=== PATIENT | male | born 1985 | race Asian ===

== ENCOUNTER 2016-07-11 11:52 | Emergency (ER) | payer MEDICAID, OTHER ==
[~2016-07-11] VITALS: Ht 175.3 cm; Wt 94.8 kg
[~2016-07-11 11:52] MED LIST: IBUPROFEN600 MG ORAL
[2016-07-11] MEDS ORDERED: Ipratropium 0.02% Inh Soln 2.5ml UD HHN ONE (12:15)
[2016-07-11] MEDS ORDERED: Albuterol ud Inhalation HHN ONE (12:15)
--- NOTE | 2016-07-11 12:29 | Emergency Room Report ---
History of Present Illness General Chief Complaint: Asthma Source: Patient Present Illness HPI The pt is a 31 yo M presenting for asthma exacerbation. The pt states he has been experiencing wheezing, cough, and chest congestion for 2 days. The pt states this feels similar to past asthma exacerbations. The pt has not used albuterol as he has run out. The patient denies any other symptoms including F, chills, SOB, CP, diaphoresis, hemoptysis. The patient denies sick contacts recent travel. Allergies: Coded Allergies: No Known Allergies (Unverified , 12/01/14) Patient History Past Medical History: see triage record Pertinent Family History: none Reviewed Nursing Documentation: PMH: Agreed, PSxH: Agreed Nursing Documentation-PMH Past Medical History: No History, Except For Hx Cardiac Problems: No Hx Hypertension: No Hx Pacemaker: No Hx Asthma: Yes Hx COPD: No Hx Diabetes: No Hx Cancer: No Hx Gastrointestinal Problems: No Hx Dialysis: No Hx Neurological Problems: No Hx Cerebrovascular Accident: No Hx Seizures: No Review of Systems All Other Systems: negative except mentioned in HPI Physical Exam Vital Signs Date Time Temp Pulse Resp B/P Pulse Ox O2 Delivery O2 Flow Rate FiO2 07/11/16 12:01 97.3 68 18 100/68 98 Room Air Sp02 EP Interpretation: reviewed, normal General Appearance: no apparent distress, alert, GCS 15, non-toxic Head: normocephalic, atraumatic Eyes: bilateral eye PERRL, bilateral eye normal inspection ENT: hearing grossly normal, normal pharynx, no angioedema, normal voice, TMs + canals normal, uvula midline, moist mucus membranes Neck: full range of motion, supple/symm/no masses Respiratory: no respiratory distress, no accessory muscle use, decreased breath sounds, speaking full sentences, wheezing - diffuse Cardiovascular #1: regular rate, rhythm, no edema Musculoskeletal: back normal, gait/station normal, normal range of motion, non- tender Neurologic: alert, oriented x3, responsive, motor strength/tone normal, sensory intact, speech normal Psychiatric: judgement/insight normal, memory normal, mood/affect normal, no suicidal/homicidal ideation Skin: normal color, no rash, warm/dry, well hydrated Lymphatic: no adenopathy Medical Decision Making PA Attestation Dr. Virgen is my supervising physician. Patient management was discussed with my supervising physician Diagnostic Impression: Primary Impression: Asthma ER Course The pt is a 31 yo M presenting for asthma exacerbation. Differential diagnosis include but not limited to asthma, pharyngitis, sinusitis, AOM, bronchitis, PNA Physical exam: Vitals within normal limits. Afebrile. No apparent distress. There is diffuse wheezing with decreased breath sounds. Otherwise exam unremarkable. Breathing treatment ordered and the patient is feeling better. Breath sounds have increased. The pt will be WI'ed home with prescription for albuterol and prednisone Last Vital Signs Date Time Temp Pulse Resp B/P Pulse Ox O2 Delivery O2 Flow Rate FiO2 07/11/16 12:01 97.3 68 18 100/68 98 Room Air Status: improved Disposition: HOME, SELF-CARE Condition: Improved Scripts Prednisone* (PREDNISONE*) 20 Mg Tablet 20 MG ORAL DAILY, #5 TAB 0 Refills Prov: BLAIR SAEED 07/11/16 Albuterol Sulfate* (PROAIR HFA*) 8.5 Gm Hfa.aer.ad 2 PUFFS INH Q6H, #8.5 GM 0 Refills Prov: BLAIR SAEED 07/11/16 BLAIR SAEED Jul 11, 2016 12:29
[2016-07-11] MEDS ORDERED: PREDNISONE20 MG ORAL (12:56)
[2016-07-11] MEDS ORDERED: PROAIR HFA8.5 GM INH (12:56)
[2016-07-11 13:30] VITALS: BP 111/75
[2016-07-11] MEDS ORDERED: ADVAIR 250-501 EACH INH (13:32)
== END 2016-07-11 13:30 | disposition home or self-care (01) ==
LOC: EMR 13:21
DX: J45.909 Unspecified asthma, uncomplicated (principal)
CPT/HCPCS: 94664; 99284